=== PATIENT | female | born 1995 | race Caucasian/White ===

== ENCOUNTER 2020-02-18 11:51 | Emergency (ER) | payer OTHER ==
[2020-02-18 12:03] VITALS: BP 116/75; PULSE 72
[2020-02-18] MEDS ORDERED: Sodium Chloride 0.9% 10 ML Syringe FLUSH PRN (12:26)
[2020-02-18] MEDS ORDERED: Sodium Chloride 0.9% 1,000 ML IV STA (12:26)
[2020-02-18] MEDS ORDERED: diphenhydrAMINE 50 MG/ML SDV IVPUSH ONE (12:28)
[2020-02-18] MEDS ORDERED: Ketorolac 30 MG/ML SDV IVPUSH ONE (12:28)
[2020-02-18] MEDS ORDERED: Prochlorperazine 10 MG/2 ML SDV IVPUSH ONE (12:29)
--- NOTE | 2020-02-18 12:30 | EDM.PDOC ---
<Dale Richardson Brian - Last Filed: 02/18/20 12:23> ED HPI GENERAL MEDICAL PROBLEM - General Chief Complaint: Neurological Problem Stated Complaint: VISION DISTURBANCE, ARM AND FACIAL NUMBNESS Time Seen by Provider: 02/18/20 12:04 Source of Information: Reports: Patient History Limitations: Reports: No Limitations - History of Present Illness INITIAL COMMENTS - FREE TEXT/NARRATIVE: Jessica is a 24 YO female that presents to the ED with a 5 day history of headache. Headache came on suddenly last Tuesday and has been constant since. Located in the frontal region and described as a severe ache. Rated at a 7 out of 10. Associated symptoms are right arm and leg numbness, neck pain, temporary vision loss this morning, and numerous episodes of nausea and vomiting. She was seen 5 days ago at [facility] in clinic and was given Toradol. Medication had no effect except making her sleep. Nothing makes pain worse. History negative for migraines. Onset: Sudden Onset Date: 02/13/20 Duration: Day(s): Location: Reports: Head, Neck, Upper Extremity, Right, Lower Extremity, Right Quality: Reports: Dull, Stabbing Severity: Moderate Improves with: Reports: None Worsens with: Reports: None Associated Symptoms: Reports: Nausea/Vomiting Headache Pain Score (Numeric/FACES): 6 - Related Data Allergies Allergy/AdvReac Type Severity Reaction Status Date / Time Sulfa (Sulfonamide Allergy Hives Verified 02/18/20 12:03 Antibiotics) Home Meds: Home Meds SUMAtriptan [Imitrex] 25 mg PO Q2HR PRN #20 tab 02/18/20 [Rx] Sertraline [Zoloft] 50 mg PO DAILY 02/18/20 [History] Past Medical History - Past Health History Medical/Surgical History: Denies Medical/Surgical History [employer] History: Reports: Neurological History: Denies: Migraines - Past Surgical History Female Surgical History: Reports: Section Social & Family History - Tobacco Use Smoking Status *Q: Current Every Day Smoker Years of Tobacco use: 8 Packs/Tins Daily: 0.2 - Caffeine Use Caffeine Use: Reports: None Other Caffeine Use: occasional caffeine use - Recreational Drug Use Recreational Drug Use: No ED ROS GENERAL - Review of Systems Review Of Systems: See Below Constitutional: Reports: Weakness. Denies: Fever HEENT: Reports: Vision Change. Denies: Vertigo Respiratory: Denies: Shortness of Breath Cardiovascular: Reports: Lightheadedness. Denies: Chest Pain, Palpitations GI/Abdominal: Reports: Nausea, Vomiting. Denies: Abdominal Pain, Constipation, Diarrhea Musculoskeletal: Reports: Other (Pain and intermittent numbness in right arm and leg. ) Neurological: Reports: Headache, Numbness ED EXAM, NEURO - Physical Exam Exam: See Below Exam Limited By: No Limitations General Appearance: Alert, No Apparent Distress Eye Exam: Right Eye: Vision Changes (Temporary loss of vision this morning. ), Bilateral Eye: PERRL Head Exam: Atraumatic, Normocephalic Respiratory/Chest: No Respiratory Distress, Lungs Clear, Normal Breath Sounds Cardiovascular: Regular Rate, Rhythm, No Gallop, No Murmur, No Rub Extremities: Other (Strength slightly decreased in right hand. Normal strength in feet and legs. ) Departure - Departure Disposition: Home, Self-Care 01 Clinical Impression: Migraine Qualifiers: Migraine type: other Status migrainosus presence: without status migrainosus Intractability: not intractable Qualified Code(s): G43.809 - Other migraine, not intractable, without status migrainosus - Discharge Information Prescriptions: SUMAtriptan [Imitrex] 25 mg PO Q2HR PRN #20 tab PRN Reason: Headache Referrals: PCP,None [Primary Care Provider] - Forms: ED Department Discharge Additional Instructions: Go home and rest. Take the imitrex when the headache starts. You may repeat another dose in 2 hours if that did not help. Max dose is 200mg in 24 hours. Follow up with your provider. Please return if you are worse. Sepsis Event Note (ED) - Evaluation Sepsis Screening Result: No Definite Risk <Isra Bo - Last Filed: 02/18/20 14:21> Course - Vital Signs Last Recorded V/S: Last Vital Signs Temp 98 F 02/18/20 12:00 Pulse 72 02/18/20 12:00 Resp 16 02/18/20 12:00 BP 116/75 02/18/20 12:00 Pulse Ox 99 02/18/20 12:00 - Orders/Labs/Meds Orders: Active Orders 24 hr Category Date Time Status Peripheral IV Care [RC] . DIRECTED Care 02/18/20 12:27 Active Sodium Chloride 0.9% [Saline Flush] Med 02/18/20 12:26 Active 10 ml FLUSH ASDIRECTED PRN ED Antiemetic Medication Reflex [OM.PC] Stat Oth 02/18/20 12:27 Ordered Peripheral IV Insertion Adult [OM.PC] Stat Oth 02/18/20 12:26 Ordered Medication Orders Sodium Chloride (Saline Flush) 10 ml FLUSH ASDIRECTED PRN PRN Reason: Keep Vein Open Last Admin: 02/18/20 12:36 Dose: 10 ml Documented by: [place] Labs: Laboratory Tests 02/18/20 Range/Units 12:30 HCG, Qual Negative (NEGATIVE) Meds: Medications Generic Name Dose Route Start Last Admin Trade Name Freq PRN Reason Stop Dose Admin Sodium Chloride 10 ml 02/18/20 12:26 02/18/20 12:36 Saline Flush FLUSH 10 ml ASDIRECTED PRN Administration Keep Vein Open Discontinued Medications Generic Name Dose Route Start Last Admin Trade Name Freq PRN Reason Stop Dose Admin Diphenhydramine HCl 50 mg 02/18/20 12:28 02/18/20 12:38 Benadryl IVPUSH 02/18/20 12:29 50 mg ONETIME ONE Administration Sodium Chloride 1,000 mls @ 1,000 mls/hr 02/18/20 12:26 02/18/20 12:36 Normal Saline IV 02/18/20 13:25 1,000 mls/hr .BOLUS STA Administration Ketorolac Tromethamine 30 mg 02/18/20 12:28 02/18/20 12:36 Toradol IVPUSH 02/18/20 12:29 30 mg ONETIME ONE Administration Prochlorperazine Edisylate 10 mg 02/18/20 12:29 02/18/20 12:37 Compazine IVPUSH 02/18/20 12:30 10 mg ONETIME ONE Administration - Re-Assessments/Exams Free Text/Narrative Re-Assessment/Exam: 02/18/20 14:14 I examined the patient myself and I agree with Dale's assessment and plan. I ordered an IV, toradol 30mg IV, benadryl 50mg IV, compazine 10mg IV, and a CT of her head. I also ordered an HCG and that was negative. Her CT looks good. She feels better. I will get her on some imitrex if this happens again. Departure - Departure Time of Disposition: 14:20 Condition: Good - Discharge Information *PRESCRIPTION DRUG MONITORING PROGRAM REVIEWED*: Not Applicable *COPY OF PRESCRIPTION DRUG MONITORING REPORT IN PATIENT RUDDY: Not Applicable Sepsis Event Note (ED) - Focused Exam Vital Signs: Vital Signs Temp Pulse Resp BP Pulse Ox 02/18/20 12:00 98 F 72 16 116/75 99 - My Orders Last 24 Hours: My Active Orders 02/18/20 12:26 Sodium Chloride 0.9% [Saline Flush] 10 ml FLUSH ASDIRECTED PRN Peripheral IV Insertion Adult [OM.PC] Stat 02/18/20 12:27 Peripheral IV Care [RC] . DIRECTED ED Antiemetic Medication Reflex [OM.PC] Stat - Assessment/Plan Last 24 Hours: My Active Orders 02/18/20 12:26 Sodium Chloride 0.9% [Saline Flush] 10 ml FLUSH ASDIRECTED PRN Peripheral IV Insertion Adult [OM.PC] Stat 02/18/20 12:27 Peripheral IV Care [RC] . DIRECTED ED Antiemetic Medication Reflex [OM.PC] Stat
--- NOTE | 2020-02-18 13:55 | CT ---
Head CT Technique: Multiple axial sections through the brain were obtained. Intravenous contrast not utilized. Comparison: No prior intracranial imaging is available. Findings: Ventricles along with basal cisterns and sulci the convexities are within normal limits for the patient's age. No abnormal parenchymal densities are seen. No evidence of intracranial hemorrhage. No midline shift or mass effect is seen. Visualized paranasal sinuses mastoid sinuses show nothing acute. No acute calvarial abnormality is seen. Impression: 1. Nothing acute is appreciated on noncontrast head CT exam. Diagnostic code #1 Study was dictated in MDT
== END 2020-02-18 14:26 | disposition home or self-care (01) ==
LOC: JD.ED 11:51
DX: G43.809 Other migraine, not intractable, without status migrainosus (principal); F17.210 Nicotine dependence, cigarettes, uncomplicated; Z88.2 Allergy status to sulfonamides; Z79.899 Other long term (current) drug therapy
CPT/HCPCS: 36415; 70450; 84703; 96361; 96374; 96375; 99284; J0780; J1200; J1885; J7030; 99283

== ENCOUNTER 2020-06-30 21:31 | Emergency (ER) | payer OTHER ==
[2020-06-30 22:03] VITALS: BP 145/76; PULSE 89
[2020-06-30] MEDS ORDERED: FLU VACC QS2020-21(6MOS UP)/PF 60 MCG/0.5 ML SYRINGE IM ONE (22:30)
--- NOTE | 2020-06-30 22:34 | EDM.PDOC ---
ED HPI GENERAL MEDICAL PROBLEM - General Chief Complaint: [employer] Problem Stated Complaint: LARGE BLOOD CLOTS AFTER MISCARRIAGE Time Seen by Provider: 06/30/20 22:19 Source of Information: Reports: Patient History Limitations: Reports: No Limitations - History of Present Illness INITIAL COMMENTS - FREE TEXT/NARRATIVE: Ms. Cha is a very pleasant 24-year-old woman who now presents to the ED with vaginal bleeding with clots and pelvic cramps following a miscarriage and D&C. She states that she suffered a miscarriage 1 week ago today, on 06/23/2020. She then underwent a D&C the following day, 06/24/2020. She states that following the D&C, she had a slight amount of vaginal bleeding, but started having more bleeding, along with pelvic cramps, this past 06/27/2020. She then started passing large clots today. She states that she started to feel somewhat lightheaded when she stands up, along with nausea, today. No recent fever. She has not notified her [employer]ER. The patient is . Here in the ED, the patient's initial BP is found to be slightly elevated at 145/76, otherwise, she is hemodynamically stable, afebrile, saturating 98% on room air. Other than the miscarriage issue, the patient denies having a recent fever, chills, sore throat, ear pain, nasal or sinus congestion, cough, dyspnea, chest pain, palpitations, nausea, vomiting, constipation, diarrhea, abdominal pain, urinary symptoms, recent weight gain or weight loss, recent bloody bowel movements or black bowel movements, recent joint aches, headaches, or rashes. The patient's PCP is Rachel Botello NP. Her [employer]STALL[employer] is Dr. Princess Pimentel. She did not receive an influenza vaccine this season, but [facility]. 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) : 3 Para: 2 Psychiatric History: Reports: Depression () - Past Surgical History HEENT Surgical History: Reports: Oral Surgery Female Surgical History: Reports: Section (x 1), D&C (x 1) Social & Family History - Family History Family Medical History: No Pertinent Family History - Tobacco Use Tobacco Use Status *Q: Current Every Day Tobacco User Years of Tobacco use: 9 Packs/Tins Daily: 0.1 - Caffeine Use Caffeine Use: Reports: Energy Drinks Other Caffeine Use: occasional caffeine use - Recreational Drug Use Recreational Drug Use: No ED ROS GENERAL - Review of Systems Review Of Systems: Comprehensive ROS is negative, except as noted in HPI. ED EXAM - Physical Exam Exam: See Below Exam Limited By: No Limitations General Appearance: Alert, WD/WN, No Apparent Distress Eye Exam: Bilateral Eye: EOMI, Normal Inspection Ears: Normal External Exam, Hearing Grossly Normal Nose: Normal Inspection Throat/Mouth: Normal Inspection, Normal Lips, Normal Voice, No Airway Compromise Head: Atraumatic, Normocephalic Neck: Normal Inspection, Full Range of Motion Respiratory/Chest: No Respiratory Distress, Lungs Clear, Normal Breath Sounds, No Accessory Muscle Use Cardiovascular: Normal Peripheral Pulses, Regular Rate, Rhythm, No Edema, No Gallop, No JVD, No Murmur, No Rub GI/Abdominal Exam: Normal Bowel Sounds, Soft, No Organomegaly, No Distention, No Abnormal Bruit, No Mass, Tender (Slight, suprapubic only. Nontender elsewhere.) (Female) Exam: Other (Some blood clot was found within the vagina, but once removed, the patient's parous cervix is closed with no active bleeding. A suture is noted in the cervix at the 10 o'clock position. No vaginal lesions seen. No suggestion of vaginitis or vaginal infection.) Back Exam: Normal Inspection, Full Range of Motion, NT Extremities: Normal Inspection, Normal Range of Motion, No Pedal Edema, Normal Capillary Refill Neurological: Alert, Oriented, Normal Cognition, No Motor/Sensory Deficits Psychiatric: Normal Affect Skin Exam: Warm, Dry, Intact, Normal Color, No Rash Course - Vital Signs Last Recorded V/S: Last Vital Signs Temp 37.1 C 06/30/20 21:59 Pulse 89 06/30/20 21:59 Resp 18 06/30/20 21:59 BP 145/76 H 06/30/20 21:59 Pulse Ox 98 06/30/20 21:59 Orthostatic Blood Pressure [ 122/73 Standing] Orthostatic Blood Pressure [ 116/75 Sitting] Orthostatic Blood Pressure [ 120/65 Supine] - Orders/Labs/Meds Orders: Active Orders 24 hr Category Date Time Status Influenza Vaccine Charge [RC] .DISCHARGE Care 06/30/20 22:06 Active Orthostatic Vital Signs [RC] STAT Care 06/30/20 22:28 Active HCG QUANTITATIVE [CHEM] Stat Lab 06/30/20 23:24 Ordered Labs: Laboratory Tests 06/30/20 06/30/20 Range/Units 22:30 22:30 WBC 10.36 H (3.98-10.04) K/mm3 RBC 3.97 L (3.98-5.22) M/mm3 Hgb 11.7 D (11.2-15.7) gm/dl Hct 35.1 (34.1-44.9) % MCV 88.4 (79.4-94.8) fl MCH 29.5 (25.6-32.2) pg MCHC 33.3 (32.2-35.5) g/dl RDW Std Deviation 40.1 (36.4-46.3) fL Plt Count 399 H (182-369) K/mm3 MPV 8.8 L (9.4-12.3) fl Neutrophils % (Manual) 68 H (40-60) % Band Neutrophils % 0 (0-10) % Lymphocytes % (Manual) 23 (20-40) % Atypical Lymphs % 0 % Immat Monocytes % (Man) 0 Monocytes % (Manual) 6 (2-10) % Eosinophils % (Manual) 2 (0.7-5.8) % Basophils % (Manual) 1 (0.1-1.2) Metamyelocytes % 0 Myelocytes % 0 Promyelocytes % 0 Blast Cells % 0 Plasma Cell % (Manual) 0 Nucleated RBCs 0.0 % Platelet Estimate Adequate RBC Morph Comment Normal Sodium 137 (136-145) mEq/L Potassium 3.6 (3.5-5.1) mEq/L Chloride 101 (98-107) mEq/L Carbon Dioxide 26 (21-32) mEq/L Anion Gap 13.6 (5-15) BUN 15 (7-18) mg/dL Creatinine 0.6 (0.55-1.02) mg/dL Est Cr Clr Drug Dosing 140.60 mL/min Estimated GFR (MDRD) > 60 (>60) mL/min BUN/Creatinine Ratio 25.0 H (14-18) Glucose 101 (74-106) mg/dL Calcium 9.1 (8.5-10.1) mg/dL Total Bilirubin 0.2 (0.2-1.0) mg/dL AST 14 L (15-37) U/L ALT 25 (14-59) U/L Alkaline Phosphatase 53 (46-116) U/L Total Protein 7.2 (6.4-8.2) g/dl Albumin 3.4 (3.4-5.0) g/dl Globulin 3.8 gm/dL Albumin/Globulin Ratio 0.9 L (1-2) Meds: Medications Discontinued Medications Generic Name Dose Route Start Last Admin Trade Name Freq PRN Reason Stop Dose Admin Influenza Virus Vaccine 1 each 06/30/20 22:06 Pharmacy To Dose - Influenza Vaccine IM 06/30/20 22:07 ONETIME ONE Influenza Virus Vaccine 60 mcg 06/30/20 22:30 Fluzone Quad [id number] Syringe IM 06/30/20 22:31 .ONCE ONE - Re-Assessments/Exams Free Text/Narrative Re-Assessment/Exam: 06/30/20 22:29 I have ordered orthostatics, CBC, and CMP. The patient will be taken to our [facility] exam room, so that I can inspect her cervix. 06/30/20 23:18 The patient is not orthostatic. The patient's CBC and CMP are grossly unremarkable. On pelvic examination, the patient had some blood clot in her vagina, but once cleared, her parous cervix is closed no current bleeding. Incidentally noted is a suture on the cervix at the 10 o'clock position. No vaginal lesions seen. 06/30/20 23:[address] Pimentel at 23:25. She feels that the patient would benefit from an ultrasound to make sure that nothing was missed on the D&C, however, she does not feel that the patient needs it tonight. She will have someone from her staff contact the patient in the morning, to arrange to have an ultrasound performed tomorrow. I have added a quantitative hCG. 11/23/20 23:31 Test results and my conversation with Dr. Pimentel discussed with the patient. She is amenable. She will keep her schedule open tomorrow. The patient will be given an influenza vaccine prior to discharge. Departure - Departure Time of Disposition: 23:32 Disposition: Home, Self-Care 01 Condition: Good Clinical Impression: Postabortion hemorrhage - Discharge Information *PRESCRIPTION DRUG MONITORING PROGRAM REVIEWED*: Not Applicable *COPY OF PRESCRIPTION DRUG MONITORING REPORT IN PATIENT RUDDY: Not Applicable Referrals: Rachel Botello NP [Primary Care Provider] - Princess Pimentel MD [Physician] - Forms: ED Department Discharge Additional Instructions: You were seen in the emergency room after passing large clots with pelvic cramps following a miscarriage and D&C on 06/24/2020. Work-up in the ER included positional blood pressure checks, and blood tests. Your blood pressure maintained itself between lying and standing. You are not significantly dehydrated. Your blood work was unremarkable. Your case was discussed with Dr. Princess Pimentel. Someone from her office will contact you tomorrow, to arrange for you to be seen and undergo an ultrasound tomorrow. If any other problems, please do not hesitate to return to the ER. You were given an influenza vaccine during your ER visit. Sepsis Event Note (ED) - Evaluation Sepsis Screening Result: No Definite Risk - Focused Exam Vital Signs: Vital Signs Temp Pulse Resp BP Pulse Ox 06/30/20 21:59 37.1 C 89 18 145/76 H 98 - My Orders Last 24 Hours: My Active Orders 06/30/20 22:06 Influenza Vaccine Charge [RC] .DISCHARGE 06/30/20 22:28 Orthostatic Vital Signs [RC] STAT 06/30/20 23:24 HCG QUANTITATIVE [CHEM] Stat - Assessment/Plan Last 24 Hours: My Active Orders 06/30/20 22:06 Influenza Vaccine Charge [RC] .DISCHARGE 06/30/20 22:28 Orthostatic Vital Signs [RC] STAT 06/30/20 23:24 HCG QUANTITATIVE [CHEM] Stat
== END 2020-06-30 23:40 | disposition home or self-care (01) ==
LOC: JD.ED 21:31
DX: O03.6 Delayed or excessive hemorrhage following complete or unspecified spontaneous abortion (principal); F53.0 Postpartum depression; O99.335 Smoking (tobacco) complicating the puerperium; F17.210 Nicotine dependence, cigarettes, uncomplicated; Z88.2 Allergy status to sulfonamides; Z79.899 Other long term (current) drug therapy; Z23 Encounter for immunization
CPT/HCPCS: 36415; 80053; 84702; 85007; 85027; 90686; 99284-25; G0008

== ENCOUNTER 2021-10-18 08:55 | Inpatient (IN) | payer OTHER ==
[2021-10-18] MEDS ORDERED: Citric Acid/Sodium Citrate Solution 30 ML Cup PO ONE (09:32)
[2021-10-18] MEDS ORDERED: Bupivacaine 0.5% 30 ML SDV ONE (09:32)
[2021-10-18] MEDS ORDERED: Sodium Chloride 0.9% 10 ML Syringe FLUSH PRN (09:32)
[2021-10-18] MEDS ORDERED: Metoclopramide 10 MG/2 ML SDV IVPUSH ONE (09:32)
[2021-10-18] MEDS ORDERED: fentaNYL 100 MCG/2 ML SDV IVPUSH PRN (09:41)
[2021-10-18] MEDS ORDERED: Ondansetron 4 MG/2 ML SDV IVPUSH PRN (09:41)
[2021-10-18] MEDS ORDERED: diphenhydrAMINE 50 MG/ML SDV IVPUSH PRN ×2 (09:41→12:07)
[2021-10-18] MEDS ORDERED: Morphine PF 10 MG/10 ML SDV ONE (09:45)
[2021-10-18] MEDS ORDERED: Lactated Ringers 1,000 ML IV SCH (09:45)
[2021-10-18] MEDS ORDERED: Ondansetron 4 MG/2 ML SDV ONE (09:47)
[2021-10-18] MEDS ORDERED: Oxytocin 10 Units/1 ML SDV ONE (09:47)
[2021-10-18] MEDS ORDERED: ceFAZolin 1 GM Vial ONE (09:48)
[2021-10-18] MEDS ORDERED: Lactated Ringers 1,000 ML ONE ×2 (10:24)
[2021-10-18] MEDS ORDERED: Ketorolac 30 MG/ML SDV ONE (10:52)
[2021-10-18] MEDS ORDERED: Naloxone 0.4 MG/ML SDV IVPUSH PRN (12:07)
[2021-10-18] MEDS ORDERED: Ibuprofen 600 MG Tab PO PRN (12:07)
[2021-10-18] MEDS ORDERED: Dextrose 5%-Lactated Ringers 1,000 ML IV SCH (12:07)
[2021-10-18] MEDS ORDERED: Witch Hazel Medicated Pads 40/Jar TOP PRN (12:07)
[2021-10-18] MEDS ORDERED: ePHEDrine 50 MG/ML SDV IVPUSH PRN (12:07)
[2021-10-18] MEDS: Acetaminophen/oxyCODONE 325-5 MG Tab PO PRN (20:18)
[2021-10-18] MEDS ORDERED: Sodium Chloride 0.9% 10 ML Syringe FLUSH SCH (21:00)
[2021-10-19] MEDS: Acetaminophen/oxyCODONE 325-5 MG Tab PO PRN ×6 (04:54→22:15)
[2021-10-19] MEDS ORDERED: Calcium Carbonate 500 MG Tab.Chew PO PRN (15:11)
[2021-10-19] MEDS ORDERED: Ondansetron 4 MG Tab.DIS PO PRN (22:40)
[2021-10-20] MEDS: Acetaminophen/oxyCODONE 325-5 MG Tab PO PRN ×2 (02:21→06:48)
[2021-10-20 10:54] VITALS: BP 116/72; PULSE 78
== END 2021-10-20 10:40 | disposition home or self-care (01) | DRG 788 ==
LOC: JD.OBCHECK 08:55 → JD.OB 09:15
PROVIDERS: ADMIT Obstetrics & Gynecology; ATTEND Obstetrics & Gynecology
PROC: 10D00Z1 Extraction of Products of Conception, Low, Open Approach (ICD-10-PCS; principal; 2021-10-18)
DX: O34.211 Maternal care for low transverse scar from previous cesarean delivery (principal); Z3A.39 39 weeks gestation of pregnancy; Z37.0 Single live birth
CPT/HCPCS: 01961; 36415; 59025; 85025; 86592; 86850; 86900; 86901; 94762; A9270-GY; J0690; J1885; J2274; J2370; J2405; J2590; J2765; J3490; J7120; J7121